=== PATIENT | male | born 1940 | race Caucasian/White ===

== ENCOUNTER → 2016-07-05 | Outpatient (CLI) | payer MEDICARE ==
--- NOTE | 2016-07-05 14:11 | Diagnostic Imaging Report ---
CLINICAL INDICATION: Patient with cough for past week. EXAM: Chest x-ray PA and lateral views. COMPARISONS: None. FINDINGS: Lungs/pleura: There is a subtle 11 mm spiculated nodular area involving the periphery of the right lung base. Likely minimal atelectasis in both lung bases. Otherwise, lungs are clear. There is no pneumothorax. There is no pleural effusion. Mediastinum: Unremarkable. Pulmonary vasculature: Unremarkable. Heart: Unremarkable. Bones/extrathoracic soft tissue: There are mild to moderately hypertrophic degenerative osteophytes scattered throughout the thoracic spine. IMPRESSION: 1: Concern for an 11 mm subtle spiculated nodule in the lateral right lung base. Chest CT scan with IV contrast is suggested for further evaluation. 2: Minimal bibasilar atelectasis. Otherwise, there is no radiographic evidence of acute cardiopulmonary process. The ordering physician's customer service officer was notified, on 07/05/2016 at 1405 hrs, regarding the availability of this report for review and information will be relayed to Dr. Bullock by personal care assistant. Dictated by: Dictated on workstation # [id number]
== END ==
LOC: RAD 13:54
PROVIDERS: ATTEND Internal Medicine
DX: R05 Cough (principal); J06.9 Acute upper respiratory infection, unspecified
CPT/HCPCS: 71020

== ENCOUNTER → 2016-07-09 | Outpatient (CLI) | payer MEDICARE ==
[~2016-07-09] MED LIST: CATHETER FLUSH 10 ML SYR IV PRN; IOHEXOL 350 MG/ML 100 ML (OMNIPAQUE 350) VIAL IV ONE; NS 100 ML (IVPB) BAG IV ONE
[2016-07-09 08:42] LABS: BLOOD UREA NITROGEN 14 MG/DL (7-18); BUN/CREATININE RATIO 15; CREATININE SERUM 0.92 MG/DL (0.60-1.30); GFR ESTIMATED > 60
--- NOTE | 2016-07-09 10:31 | Diagnostic Imaging Report ---
PROCEDURE: CT chest with contrast only. TECHNIQUE: Multiple contiguous axial images were obtained through the chest after administration of intravenous contrast. INDICATION: Cough x2 weeks. Possible pulmonary nodule seen on previously performed chest radiograph. COMPARISON: Chest radiograph dated 07/05/2016. FINDINGS: Evaluation of the lung windows demonstrates minimal dependent bibasilar atelectasis. There is no focal consolidation, pleural effusion, nor pneumothorax. There is ill-defined groundglass nodular density within the posterior margins of the inferior margins of the right upper lobe. Area in question measures approximately 1.7 x 1.2 cm. No other pulmonary nodules or masses are identified. Cardiomediastinal structures show normal heart size. There is no large pericardial effusion. No pathologically enlarged or morphologically abnormal adenopathy is seen within the mediastinum, valerie, nor axilla. There is scattered calcified aortic and coronary atherosclerosis. Small hiatal hernia is noted. Bony structures show age-related degenerative changes. No lytic or blastic lesions are seen. Included views of the upper abdomen are unremarkable. IMPRESSION: 1. Groundglass nodular density within the posterior inferior margins of the right upper lobe as described above. This is nonspecific and could be on the basis of underlying infectious or inflammatory process. However, bronchoalveolar/adenocarcinoma in situ may also present in a similar manner. Therefore, short interval followup in three months is recommended. Dictated by: Dictated on workstation # [id number]
== END ==
LOC: RAD 08:03
PROVIDERS: ATTEND Nurse Practitioner
DX: J98.4 Other disorders of lung (principal)
CPT/HCPCS: 36415; 71260; 82565; 84520

== ENCOUNTER → 2016-08-17 | Outpatient (CLI) | payer MEDICARE ==
--- OUTSIDE RECORDS SUMMARY | 2016-08-17 09:10 | XMS REPORT | Continuity of Care Document ---
Author Author [facility] Organization [facility] Address Unknown Phone Unavailable Allergies Active Description Code Type Severity Reaction Onset Reported/Identified Relationship to Patient Clinical Status Yes No Allergy Information Available [id number] Drug Allergy Unknown N/A 07/09/2016 Medications Problems Date Dx Coded Attending Type Code Diagnosis Diagnosed By 09/30/2015 ROBERT BERNAL DO Ot G47.33 OBSTRUCTIVE SLEEP APNEA (ADULT) (PEDIATR 10/02/2015 ROBERT BERNAL DO Ot G47.33 OBSTRUCTIVE SLEEP APNEA (ADULT) (PEDIATR 07/09/2016 AMY SIDHU APRN Ot J98.4 OTHER DISORDERS OF LUNG 07/12/2016 AMY SIDHU APRN Ot J98.4 OTHER DISORDERS OF LUNG 07/28/2016 BORIS RODRIGUEZ, ARIES Mooney Ot J06.9 ACUTE UPPER RESPIRATORY INFECTION, UNSPE 07/28/2016 ARIES ESCALANTE MD Ot R05 COUGH 08/02/2016 AMY SIDHU APRN Ot J98.4 OTHER DISORDERS OF LUNG 08/05/2016 ARIES ESCALANTE MD Ot J06.9 ACUTE UPPER RESPIRATORY INFECTION, UNSPE 08/05/2016 ARIES ESCALANTE MD Ot R05 COUGH 08/05/2016 AMY SIDHU APRN Ot J98.4 OTHER DISORDERS OF LUNG Procedures Results Test Result Range [id number] - 07/09/16 08:15 Serum or plasma urea nitrogen measurement (mass/volume) 14 mg/dL 7-18 Serum or plasma creatinine measurement (mass/volume) 0.92 mg /dL 0.60-1.30 Serum or plasma urea nitrogen/creatinine mass ratio 15 NRG Serum or plasma creatinine measurement with calculation of estimated glomerular filtration rate > NRG Encounters ACCT No. Visit Date/Time Discharge Status Pt. Type Provider Facility Loc./Unit Complaint [id number] 09/30/2015 10:32:00 2015 10:50:00 DIS Outpatient ROBERT BERNAL DO [facility] SLEEP SNORING,DAYTIME SLEEPNESS [id number] 07/09/2016 08:03:00 ACT Outpatient AMY SIDHU APRN [facility] RAD ABNORMAL CHEST XRAY [id number] 07/05/2016 13:54:00 ACT Outpatient ARIES ESCALANTE MD [facility] RAD COUGH
--- NOTE | 2016-08-19 10:07 | Diagnostic Imaging Report ---
EXAMINATION: PET-CT TECHNIQUE: Serum glucose level at the time of the study is: 100 mg/dL. 12 mCi of FDG was administered intravenously followed by obtaining PET images with corresponding noncontrast CT scan images. The CT scan was performed for anatomic correlation and attenuation correction and was not performed according to the diagnostic protocol of the areas covered. The scan was performed from the head to mid thighs. INDICATION: Lung nodule. FINDINGS: The brain demonstrates symmetric FDG uptake. There is a moderate focal hypermetabolism seen in the left maxilla which appears to correlate with bony erosion in the alveolar plate along the molar teeth. A dental examination is recommended. In the neck, there is no suspicious hypermetabolic lesion seen. In the chest, there is no hypermetabolic nodule seen. The groundglass nodule seen on chest CT from 07/09/2016 is not clearly visualized suggestive of interval improvement although the technique for the associated localizer CT and breathing motion artifact could obscure subtle abnormality. No suspicious hypermetabolic lesion is seen in the chest. The abdomen and pelvis demonstrate urinary tract excretion and mild activity in the right colon, probably physiologic. The prostate appears enlarged. IMPRESSION: 1. Hypermetabolic focus is seen in the left maxilla and near the posterior left upper molar tooth area. Dental evaluation is recommended. 2. No suspicious hypermetabolic mass is seen. The groundglass nodule in the right upper lobe appears improved based on the localizer CT scan compared to prior CT chest. Dictated by: Dictated on workstation # [id number]
== END ==
LOC: RAD 09:07
PROVIDERS: ATTEND Nurse Practitioner Family
DX: R06.00 Dyspnea, unspecified (principal); R91.8 Other nonspecific abnormal finding of lung field

== ENCOUNTER → 2017-03-01 | Outpatient (CLI) | payer MEDICARE ==
--- NOTE | 2017-03-01 10:49 | Diagnostic Imaging Report ---
PROCEDURE: CT chest without contrast. TECHNIQUE: Multiple contiguous axial images were obtained through the chest without the use of intravenous contrast. INDICATION: Lung nodules. Obesity. Obstructive sleep apnea. COMPARISON: 07/09/2016 FINDINGS: There is no significant consolidation, nodule or mass seen. Previously seen groundglass nodular area in the right upper lobe is resolved. There is remaining 4 mm nodule seen in the left lower lobe, image 42. It is probably present on 07/09/2016 exam however it is harder to appreciate because of atelectasis. There is no mediastinal mass. No significantly enlarged mediastinal lymph node is seen. No hilar mass is seen. No axillary lymphadenopathy is noted. The heart size is normal. No pericardial effusion. Coronary artery calcifications are seen. The thoracic aorta is normal in caliber. The osseous structures appear grossly unremarkable. Small hiatal hernia is seen. IMPRESSION: 1. A 4 mm nodule in the left lower lobe, axial image 42 was probably present on 07/09/2016 exam although difficult to see because of adjacent atelectasis, is favored to be a focal scar. Another followup exam in 12 months could be considered if the patient has history or risk factors for malignancy. 2. Small hiatal hernia. Dictated by: Dictated on workstation # [id number]
== END ==
LOC: RAD 09:45
PROVIDERS: ATTEND Internal Medicine Critical Care Medicine
DX: R91.8 Other nonspecific abnormal finding of lung field (principal); K44.9 Diaphragmatic hernia without obstruction or gangrene; E66.9 Obesity, unspecified; G47.33 Obstructive sleep apnea (adult) (pediatric); G47.34 Idiopathic sleep related nonobstructive alveolar hypoventilation
CPT/HCPCS: 71250

== ENCOUNTER → 2018-03-08 | Outpatient (CLI) | payer MEDICARE ==
--- NOTE | 2018-03-08 11:23 | Diagnostic Imaging Report ---
PROCEDURE: CT chest without contrast. TECHNIQUE: Multiple contiguous axial images were obtained through the chest without the use of intravenous contrast. INDICATION: Pulmonary nodules, followup. Correlation is made with prior CT chest from 03/01/2017. No axillary lymphadenopathy is identified. No definite mediastinal or hilar lymphadenopathy is identified. There are coronary arterial calcification present. No pericardial or pleural fluid is identified. Tiny nodular density in the posterior left lower lobe image 46 appear stable at 4 mm and again is most suggestive of area of scarring. There is some scarring or atelectasis in the posterior right lower lobe. No new mass is seen. The upper abdomen is unremarkable. IMPRESSION: Stable 4 mm left lower lobe nodular density when compared with one year earlier and again most consistent with a scar. No new parenchymal abnormality is seen. Dictated by: Dictated on workstation # [id number]
== END ==
LOC: RAD 10:18
PROVIDERS: ATTEND Nurse Practitioner Family
DX: J98.4 Other disorders of lung (principal); R91.8 Other nonspecific abnormal finding of lung field
CPT/HCPCS: 71250

== ENCOUNTER → 2021-03-31 | Outpatient (CLI) | payer MEDICARE | LOC: LABNPT 06:19 | PROVIDERS: ATTEND Nurse Practitioner Family | DX: G47.33 Obstructive sleep apnea (adult) (pediatric) (principal); Z20.822 Contact with and (suspected) exposure to COVID-19 | CPT/HCPCS: 87635 ==

== ENCOUNTER 2021-04-02 20:30 | Outpatient (CLI) | payer MEDICARE | END 2021-04-03 07:30 | disposition home or self-care (01) | LOC: SLEEP 20:30 | PROVIDERS: ATTEND Nurse Practitioner Family | DX: G47.33 Obstructive sleep apnea (adult) (pediatric) (principal); G47.34 Idiopathic sleep related nonobstructive alveolar hypoventilation; R91.8 Other nonspecific abnormal finding of lung field; E66.9 Obesity, unspecified | CPT/HCPCS: 95811 ==

== ENCOUNTER → 2023-01-20 | Outpatient (CLI) | payer MEDICARE ==
--- NOTE | 2023-01-20 16:29 | Diagnostic Imaging Report ---
PROCEDURE: US Scrotum. TECHNIQUE: Multiple real-time grayscale images were obtained over the scrotum in various projections bilaterally. INDICATION: Right-sided varicocele. FINDINGS: Right testicle measures 4.7 x 2.9 x 3.4 cm and left testicle measures 4.8 x 2.4 x 3.0 cm. Both testes show homogeneous echotexture. No testicular mass is identified. There is blood flow to both testes. There appears to be a large septated hydrocele on the right. The right epididymis was not well visualized. Left epididymis does contain two cysts, largest 6 mm in size. No left-sided hydrocele is seen. No varicoceles are seen. IMPRESSION: 1. No evidence of testicular mass or vascular compromise. 2. Large septated right hydrocele. 3. Small left epididymal cysts. Dictated by: Dictated on workstation # [id number]
== END ==
LOC: RAD 11:29
PROVIDERS: ATTEND Internal Medicine
DX: N43.2 Other hydrocele (principal); N50.3 Cyst of epididymis; I86.1 Scrotal varices; I10 Essential (primary) hypertension; I25.10 Atherosclerotic heart disease of native coronary artery without angina pectoris; G47.33 Obstructive sleep apnea (adult) (pediatric); F41.3 Other mixed anxiety disorders
CPT/HCPCS: 76870